=== PATIENT | female | born 1985 | race Hispanic/Latino ===

== ENCOUNTER 2017-02-06 03:12 | Inpatient (IN) | payer SELFPAY, OTHER ==
[2017-02-06] MEDS: LR 1,000 ML IV (04:31)
[2017-02-06 05:15] LABS: HEMATOCRIT 35.5 % (36.0-47.0); HEMOGLOBIN 11.7 g/dl (12.0-16.0); MEAN CORPUSCULAR HEMOGLOBIN 29.5 pg (27.0-33.0); MEAN CORPUSCULAR VOLUME 89.6 fl (80.0-96.0); PLATELET COUNT, AUTOMATED 265 10^3/uL (150-450); RED BLOOD COUNT 3.96 10^6/uL (4.00-5.40); WHITE BLOOD COUNT 8.6 10^3/uL (4.0-10.0)
[2017-02-06 05:32] LABS: AMPHETAMINES URINE REFLEX NEGATIVE (NEGATIVE); BARBITURATES URINE REFLEX NEGATIVE (NEGATIVE); BENZODIAZEPINES URINE REFLEX NEGATIVE (NEGATIVE); CANNABINOIDS URINE REFLEX NEGATIVE (NEGATIVE); COCAINE METABOLITE URINE REFLE NEGATIVE (NEGATIVE); METHADONE URINE REFLEX NEGATIVE (NEGATIVE); OPIATES URINE REFLEX NEGATIVE (NEGATIVE); PHENCYCLIDINE URINE REFLEX NEGATIVE (NEGATIVE)
[2017-02-06] MEDS: OXYTOCIN DRIP 30 UNITS in APPROPRIATE DILUENT 1 EA IV (09:53)
[2017-02-06] MEDS: LACTATED RINGER'S 1000 ML IV (11:55)
[2017-02-06] MEDS ORDERED: FENTANYL 2MCG/ML ROPIVACAINE 0.2% IN 0.9% NACL 200ML IVBAG As Ordered (15:41)
[2017-02-06] MEDS ORDERED: RHOGAM 300 MCG (1500 IU) INJ (J2790) IM (16:45)
[2017-02-06] MEDS ORDERED: ACETAMINOPHEN 500 MG TAB PO (16:45)
[2017-02-06] MEDS ORDERED: DIBUCAINE 1% OINTMENT 30GM TOP (16:45)
[2017-02-06] MEDS ORDERED: DOCUSATE SODIUM 100 MG CAP PO (16:45)
[2017-02-06] MEDS ORDERED: METHYLERGONOVINE MALEATE 0.2 MG TAB PO (16:45)
[2017-02-06] MEDS ORDERED: MOM 30ML SUSPENSION UDC PO (16:45)
[2017-02-06] MEDS ORDERED: MEASLES,MUMPS,RUBELLA VACCINE INJ (MMR-II) (90707) SC (16:45)
[2017-02-06 16:54] LABS: CORD GAS ABE A -2.6; CORD GAS HCO3 A 24.5 MEQ/L; CORD GAS O2 SAT A 28.1 %; CORD GAS PCO2 A 51.5 mmHg; CORD GAS PH A 7.295 UNITS; CORD GAS PO2 A 15.9 mmHg; CORD GAS SBC A 20.8 MEQ/L; CORD GAS TCO2 A 26.1 MEQ/L
[2017-02-06 16:57] LABS: CORD GAS ABE V -4.4; CORD GAS HCO3 V 20.7 MEQ/L; CORD GAS O2 SAT V 80.2 %; CORD GAS PCO2 V 38.5 mmHg; CORD GAS PH V 7.349 UNITS; CORD GAS PO2 V 35.8 mmHg; CORD GAS SBC V 20.5 MEQ/L; CORD GAS TCO2 V 21.9 MEQ/L
[2017-02-06] MEDS: IBUPROFEN 800 MG TAB PO (17:36)
[2017-02-06] MEDS: OXYTOCIN INJ 10 UNITS/ML VIAL (J2590) IV (23:00)
[2017-02-07] MEDS: IBUPROFEN 800 MG TAB PO ×3 (05:25→21:25)
[2017-02-07 07:25] LABS: HEMOGLOBIN 11.1 g/dl (12.0-16.0); MEAN CORPUSCULAR HEMOGLOBIN 29.8 pg (27.0-33.0); MEAN CORPUSCULAR HGB CONC 33.6 g/dl (32.0-36.5); MEAN CORPUSCULAR VOLUME 88.5 fl (80.0-96.0); PLATELET COUNT, AUTOMATED 235 10^3/uL (150-450); RED BLOOD COUNT 3.73 10^6/uL (4.00-5.40); WHITE BLOOD COUNT 12.4 10^3/uL (4.0-10.0)
[2017-02-07] MEDS: PRENATAL VITAMINS CHEWABLE TABLET PO (09:24)
[2017-02-08] MEDS: PRENATAL VITAMINS CHEWABLE TABLET PO (08:05)
[2017-02-08] MEDS: IBUPROFEN 800 MG TAB PO (08:06)
== END 2017-02-08 12:32 | disposition home or self-care (01) | DRG 560 ==
LOC: M LDO 03:12 → M LDI 04:34 → M OBS 18:34
PROVIDERS: Obstetrics & Gynecology
PROC: 10E0XZZ Delivery of Products of Conception, External Approach (ICD-10-PCS; principal; 2017-02-06)
PROC: 10907ZC Drainage of Amniotic Fluid, Therapeutic from Products of Conception, Via Natural or Artificial Opening (ICD-10-PCS; 2017-02-06)
PROC: 0HQ9XZZ Repair Perineum Skin, External Approach (ICD-10-PCS; 2017-02-06)
DX: O34.211 Maternal care for low transverse scar from previous cesarean delivery (principal); Z3A.39 39 weeks gestation of pregnancy; O62.3 Precipitate labor; O45.93 Premature separation of placenta, unspecified, third trimester; O70.0 First degree perineal laceration during delivery; Z37.0 Single live birth